=== PATIENT | male | born 1965 | race Two or more races ===

== ENCOUNTER 2019-06-12 11:36 | Emergency (ER) | payer OTHER ==
[~2019-06-12] VITALS: Ht 167.6 cm; Wt 80.4 kg
--- NOTE | 2019-06-12 11:43 | NUR ---
responded to this patient in the lobby after registration reported that the patient fell. Upon arrival, patient was laying on the floor on his left side. Assessed the patient for injuries. None noted. pt stated "i didn't fall, i laid down on the floor because it is more confortable". Pt assisted to the wheelchair. Brenda assisted with the conversation and placement to the wheelchair.
--- NOTE | 2019-06-12 11:53 | NUR ---
EXECUTIVE CANDIDATE DEVELOPER: PT TO ROOM AT THIS TIME.
[2019-06-12] MEDS ORDERED: HYDROmorphone 1 MG/ML, 1ML INJ ONE (12:06)
[2019-06-12] MEDS ORDERED: ONDANSETRON 2MG/ML, 2ML ONE (12:06)
[2019-06-12] MEDS ORDERED: KETOROLAC 30 MG/1 ML ONE (12:06)
--- NOTE | 2019-06-12 12:13 | NUR ---
MEDICATED PER MAR FOR RIGHT LOWER BACK, SIDE AND ABDOMINAL PAIN. PT CRYING AND MOANING.
[2019-06-12 12:22] LABS: BASOPHILS % (AUTO) 0 % (0-1); EOSINOPHILS % (AUTO) 0 % (1-7); LYMPHOCYTES % (AUTO) 4 % (22-44); MD NO; MEAN CORPUSCULAR HEMOGLOBIN 32.4 pg (27.5-34.5); MEAN CORPUSCULAR HGB CONC 33.5 g/dL (33.2-36.2); MEAN CORPUSCULAR VOLUME 96.7 fL (81-97); MEAN PLATELET VOLUME 7.6 fL (7.4-10.4); MONOCYTES # (AUTO) 0.43 x10^3/uL (0.2-0.8); MONOCYTES % (AUTO) 4 % (2-9); NEUTROPHILS # (AUTO) 8.82 x10^3/uL (1.8-6.8); NEUTROPHILS % (AUTO) 91 % (42-75); PLATELET COUNT 251 x10^3/uL (130-400); RED BLOOD COUNT 4.81 x10^6/uL (4.38-5.82); RED CELL DISTRIBUTION WIDTH 13.5 % (9.4-14.8)
--- NOTE | 2019-06-12 12:25 | NUR ---
PT NO LONGER MOANING WITH PAIN, LYING IN GURNEY WITH EYES CLOSED. FAMILY REMAINS AT BEDSIDE AND MADE AWARE OF POC
[2019-06-12] MEDS ORDERED: HYDROmorphone 2 MG/ML, 1ML IVPush PRN (12:30)
[2019-06-12] MEDS ORDERED: KETOROLAC 30 MG/1 ML IVPush ONE (12:30)
[2019-06-12] MEDS ORDERED: SODIUM CHLORIDE 0.9% 1,000ML IV ONE (12:30)
[2019-06-12] MEDS ORDERED: SODIUM CHLORIDE FLUSH 10ML SYR IVF ONE (12:30)
[2019-06-12] MEDS ORDERED: ONDANSETRON 2MG/ML, 2ML IVPush ONE (12:30)
[2019-06-12 12:34] LABS: ALBUMIN 4.1 g/dL (3.4-5.0); ANION GAP 9 mmol/L (5-15); CHLORIDE 108 mmol/L (98-107)
[2019-06-12 12:38] LABS: ALANINE AMINOTRANSFERASE 42 U/L (12-78); ALKALINE PHOSPHATASE 61 U/L (45-117); BILIRUBIN,TOTAL 0.6 mg/dL (0.2-1.0); CREATININE 1.42 mg/dL (0.7-1.3); TOTAL PROTEIN 7.8 g/dL (6.4-8.2)
--- NOTE | 2019-06-12 13:09 | NUR ---
BREAK NOTE FOR RN: PT SITTING RECLINED IN BED, RESPIRATIONS EVEN AND UNLABORED SATURATING WELL ON NC. PT DENIES PAIN AT THIS TIME. IVF INFUSING PER EMAR. SIDE RAILS UP, CALL LIGHT IN REACH. FAMILY AT BEDSIDE. PT AWARE OF NEED FOR UA.
[2019-06-12 13:12] VITALS: BP 120/74
[2019-06-12] MEDS ORDERED: POTASSIUM CHLORIDE 20 MEQ TAB.ER.PRT PO ONE (14:00)
[2019-06-12 14:23] LABS: MICROSCOPIC AUTO
[2019-06-12 14:25] LABS: CULTURE INDICATED? NO
--- NOTE | 2019-06-12 15:05 | NUR ---
PT AND FAMILY GIVEN DISCHARGE PAPERS. AMBULATED TO DISCHARGE WINDOW, STEADY GAIT
== END 2019-06-12 15:07 ==
LOC: ED 15:01
DX: N13.2 Hydronephrosis with renal and ureteral calculous obstruction (principal); R11.2 Nausea with vomiting, unspecified
CPT/HCPCS: 36415; 74176; 80053; 81001; 83690; 85025; 96361; 96374; 96375; 99284; J1170; J1885; J2405; J7030